=== PATIENT | male | born 1960 | race Asian ===

== ENCOUNTER 2020-08-25 10:53 | Emergency (ER) | payer SELFPAY ==
[~2020-08-25] VITALS: Ht 170.2 cm; Wt 65.8 kg
[2020-08-25 11:16] VITALS: BP 127/77
== END 2020-08-25 13:21 | disposition home or self-care (01) ==
LOC: ER 10:53
DX: R42 Dizziness and giddiness (principal); W19.XXXA Unspecified fall, initial encounter; Y93.89 Activity, other specified; Y92.89 Other specified places as the place of occurrence of the external cause; Y99.8 Other external cause status
CPT/HCPCS: 70450; 82962